=== PATIENT | female | born 1995 | race African-American/Black ===

== ENCOUNTER 2021-10-11 13:33 | Emergency (ER) | payer SELFPAY ==
[~2021-10-11] VITALS: Ht 167.6 cm; Wt 100.0 kg
[2021-10-11] MEDS ORDERED: ONDANSETRON HCL 4MG/2ML INJ IV STA (13:54)
[2021-10-11] MEDS ORDERED: KETOROLAC 30MG/ML VIAL IV STA (13:58)
[2021-10-11] MEDS ORDERED: SODIUM CHLORIDE 0.9% 1,000 ML IV ONE (14:00)
[2021-10-11 14:47] LABS: CLARITY URINE CLOUDY (CLEAR); COLOR URINE YELLOW (YELLOW); HEMATOCRIT. 43.4 % (36.0-48.0); HEMOGLOBIN. 13.8 g/dL (12.0-16.0); KETONES URINE 2+ (NEGATIVE); LEUKOCYTE ESTERASE URINE 1+ (NEGATIVE); MEAN CORPUSCULAR HEMOGLOBIN 26.1 pg (28.0-32.0); MEAN CORPUSCULAR VOLUME 81.6 fL (81.0-99.0); MEAN PLATELET VOLUME 9.6 fl (7.4-10.4); NITRITE URINE NEGATIVE (NEGATIVE); OCCULT BLOOD URINE 2+ (NEGATIVE); PH URINE 8.5 (4.5-8.0); PLATELET 350 x1000/uL (130-400); PROTEIN URINE TRACE (NEGATIVE); RED BLOOD CELL COUNT 5.31 mill/uL (4.2-5.4); RED CELL DISTRIBUTION WIDTH 13.6 % (11.6-14.6); UROBILINOGEN URINE 0.2 E.U./dL (0.2-1.0)
[2021-10-11 14:54] LABS: CHLORIDE 106 mEq/L (98-107)
[2021-10-11 14:57] LABS: HCG SCREEN NEGATIVE
[2021-10-11 14:58] LABS: ETHANOL BLOOD < 10 mg/dL
[2021-10-11] MEDS ORDERED: CEFTRIAXONE 1 G PREMIX 50 ML IV ONE (15:15)
[2021-10-11] MEDS ORDERED: POTASSIUM CHLORIDE 20MEQ TABLET SR PO ONE (15:15)
[2021-10-11 15:22] LABS: PLATELET ESTIMATE NORMAL
[2021-10-11] MEDS ORDERED: IBUP-2028 MT (15:53)
[2021-10-11] MEDS ORDERED: AMOX-424 MT (15:53)
[2021-10-11 16:07] VITALS: BP 141/53
== END 2021-10-11 16:09 | disposition home or self-care (01) ==
LOC: ER 13:53
DX: N30.00 Acute cystitis without hematuria (principal); E87.6 Hypokalemia; D25.9 Leiomyoma of uterus, unspecified
CPT/HCPCS: 36415; 71045; 76830; 76856; 80053; 80320; 81003; 81025; 83690; 84703; 85025; 96361; 96365; 96375; 99285; J0696; J1885; J2405; J7030; G0480